=== PATIENT | female | born 1975 | race Caucasian/White ===

== ENCOUNTER 2018-07-06 11:29 | Emergency (ER) | payer OTHER, SELFPAY ==
[2018-07-06 11:33] VITALS: BP 110/70; PULSE 76; RESP 16; TEMP 36.7
--- NOTE | 2018-07-06 11:35 | ED.GENADUL_ITS ---
Discharge Plan Disposition Patient Disposition: HOME Condition: Good Discharge Details Chief Complaint: Cellulitis Clinical Impression: Tick bite of left upper arm Primary Care Provider: ALEXANDER,LOCAL ED Provider: Soren Tomas Discharge Instructions Instructions: Tick Bite (ED) Discharge Data Discharge Physician: Soren Tomas Medical Decision Making Patient comes in after she found a tick on her left elbow today and is unclear how long it had been there. Was walking in the [place] on . HAs no symptoms and no rash on exam. Given unclear timing of tick bite will give prophylactic dose of doxcycline Differential Diagnosis tick bite, lyme, cellulitis HPI General Mode of arrival: ambulatory . Date/Time Provider Initiated Documentation: 07/06/18 11:29 . Limitations to Documentation: no limitations . Information obtained by: patient . History of Present Illness 43 year old F presents to the emergency department with the chief complaint of tick bite left elbow, described as mild, with intensity rated at 1. and is localized to the left and upper extremity. Patient reports no radiation. Patient started experiencing this unknown No relieving factors improve symptom (s), No exacerbating factors reported . Patient notes no other symptoms.. Patient did receive the following treatments prior to arrival, none Related Data Allergies Allergy/AdvReac Type Severity Reaction Status Date / Time erythromycin base Allergy Unverified 07/06/18 11:37 Review of Systems Review of Systems All systems reviewed & are unremarkable except as noted in HPI and below Constitutional Denies chills, Denies fever(s) and Denies weakness Eyes Denies loss of vision ENT Denies change in voice Cardiovascular Denies chest pain and Denies dyspnea Respiratory Denies dyspnea Gastrointestinal Denies abdominal pain, Denies nausea and Denies vomiting Genitourinary Denies dysuria Musculoskeletal Denies joint swelling Integumentary/Breasts Denies rash Neurologic Denies loss of vision and Denies weakness Psychiatric Denies depression Endocrine Denies cold intolerance and Denies heat intolerance Allergic/Immunologic Denies urticaria [facility] Social History Smoking/Tobacco Use Status: Never Exam Const General: no acute distress Orientation: alert HENMT Head: normal to inspection Ears: external ears normal General nose exam: external nose normal Mouth: moist mucous membranes Eyes General: appearance normal, both eyes and all related structures Neck Neck: normal visual inspection Resp Effort & Inspection: normal respiratory effort and able to speak in complete sentences Cardio Rate: regular rate Skin General skin exam: no rashes or lesions noted Neuro General: alert and oriented x3 Extrem General: normal to inspection Psych Mental Status: mental status grossly normal
[2018-07-06] MEDS: Doxycycline Hyclate 100 MG CAP 200 MG PO (11:50)
== END 2018-07-06 11:48 | disposition home or self-care (01) ==
LOC: ER 11:56
PROVIDERS: Emergency Provider Emergency Medicine
DX: S50.362A Insect bite (nonvenomous) of left elbow, initial encounter (principal); W57.XXXA Bitten or stung by nonvenomous insect and other nonvenomous arthropods, initial encounter
CPT/HCPCS: 99283